=== PATIENT | female | born 1950 | race African-American/Black ===

== ENCOUNTER 2017-06-12 11:58 | Inpatient (IN) ==
[2017-06-12] MEDS ORDERED: FUROSEMIDE 40 MG/4 ML VIAL IV STA (12:53)
[2017-06-12 13:49] LABS: Hematocrit 29.4 VOL% (35.7-47.0); Hemoglobin 9.5 GM/DL (12.0-16.0); Immature Granulocytes % 0.4 %; Immature Granulocytes Absolute 0.03 #; Lymphocytes # 0.9 10*3/uL (1.4-4.0); Mean Corpuscular HGB Conc 32.3 GM/DL (32-36); Mean Corpuscular Hemoglobin 31 PG (27-34); Mean Corpuscular Volume 94.5 FL (87-102); Mean Platelet Volume 9.2 FL (9.6-12.0); Monocytes # 0.4 10*3/uL (0.11-0.8); Monocytes % 6.1 % (1.7-12.7); NRBC # 0.02 10*3/uL; Neutrophils # 5.4 10*3/uL (1.4-7.4); Neutrophils % 80.5 % (38.7-73.9); Platelet Count 324 T/CUMM (130-400); Red Blood Count 3.11 MC/CUMM (3.8-5.5); Red Cell Distribution Width 16.2 % (9.3-17.3); White Blood Count 6.8 T/CUMM (4-12)
[2017-06-12 13:58] LABS: PT Patient Result 10.7 SECS
[2017-06-12] MEDS ORDERED: FUROSEMIDE 40 MG/4 ML VIAL ONE (14:17)
[2017-06-12 14:20] LABS: Apearance,Urine CLEAR (Clear); Bilirubin,Urine Negative (Negative); Blood, Urine Large mg/dL (Negative); Glucose,Urine (UA) Negative (Negative); Hyaline Casts,Urine 6 /LPF (0-3); Ketones,Urine 5 mg/dL (Negative); Mucus,Urine Occasional /LPF (Occasional); Nitrite,Urine Negative (Negative); Protein,Urine 30 MG/DL; RBC,Urine 88 /HPF (0-4); Squamous Epithelial Cell,Urine Occasional /HPF (0-10); Urine Color Yellow (Yellow); Urine Specific Gravity 1.023 (1.001-1.035); Urine Urobilinogen < 2.0 EU/DL (0.2-1.0); WBC,Urine 185 /HPF (0-6)
[2017-06-12 14:26] LABS: Barbiturates Screen,Urine Negative (Negative); Benzodiazepines Screen,Urine Negative (Negative); Cannabinoid Screen,Urine Negative (Negative); Opiate Screen,Urine Negative (Negative); Phencyclidine Screen,Urine Negative (Negative)
[2017-06-12 14:27] LABS: Alanine Aminotransferase 11 U/L (13-56); Albumin 2.3 G/DL (3.4-5.0); Alkaline Phosphatase 68 U/L (45-117); Aspartate Amino Transferase 59 U/L (0-37); Bilirubin,Total < 0.39 MG/DL (0.2-1.0); Blood Urea Nitrogen 13 MG/DL (7-18); Glucose 104 MG/DL (74-106); Osmolality,Calculated 285.8 MOS/KG (273-304); Potassium 3.1 MMOL/L (3.5-5.1); Sodium 144 MMOL/L (136-145); Total Protein 6.8 G/DL (6.4-8.3)
[2017-06-12 14:29] LABS: CKMB % 6.5 %
[2017-06-12 14:32] LABS: Troponin I Only 0.657 NG/ML (0.00-0.045)
[2017-06-12] MEDS ORDERED: LEVOFLOXACIN INJ 750 MG in PREMIX 1 EACH IV STA (15:01)
[2017-06-12] MEDS ORDERED: ERGOCALCIFEROL 50,000 UNIT CAPSULE PO SCH (15:30)
[2017-06-12] MEDS ORDERED: LEVOFLOXACIN INJ 500 MG in PREMIX 1 EACH IV SCH (15:30)
[2017-06-12 16:41] LABS: Hepatitis A Ab IgM Quant 0.11 Index; Hepatitis A Ab IgM Result Negative (Negative); Hepatitis B Core IgM Quant 0.17 Index; Hepatitis B Core IgM Result Negative (Negative); Hepatitis B Surface Ag Quant 0.23 Index; Hepatitis B Surface Ag Result Negative (Negative); Hepatitis C Virus Ab Quant 0.54 Index; Hepatitis C Virus Ab Result Negative (Negative)
[2017-06-12] MEDS ORDERED: INFLUENZA VIRUS VACCINE 0.5 ML SYRINGE IM ONE (17:27)
[2017-06-12] MEDS ORDERED: ESTRADIOL 0.01% VAG CREAM 42.5 GM TUBE VAG SCH (18:00)
[2017-06-12 18:36] LABS: Alcohol Patient Result Negative (Negative)
[2017-06-12 19:08] LABS: Prealbumin 24.9 MG/DL (20-40); Thyroid Stimulating Hormone 3.04 uIU/ml (0.358-3.74)
[2017-06-12 19:11] LABS: Troponin I Only 0.636 NG/ML (0.00-0.045)
[2017-06-12] MEDS: FUROSEMIDE 40 MG/4 ML VIAL IV SCH (19:13)
[2017-06-12] MEDS: predniSONE 5 MG TABLET PO SCH (21:56)
[2017-06-12] MEDS: VANCOMYCIN INJ 1,250 MG in SODIUM CHLORIDE 0.9% 250 ML IV SCH (21:57)
[2017-06-13] MEDS: POTASSIUM CHLORIDE RIDER 10 MEQ in PREMIX 1 EACH IV PRN ×4 (00:10→04:00)
[2017-06-13 01:46] LABS: Eosinophils % 0.6 % (0.00-10.9); Hemoglobin 8.1 GM/DL (12.0-16.0); Immature Granulocytes % 0.6 %; Immature Granulocytes Absolute 0.03 #; Lymphocytes # 1.5 10*3/uL (1.4-4.0); Lymphocytes % 28.2 % (21.3-54.2); Mean Corpuscular HGB Conc 33.8 GM/DL (32-36); Mean Corpuscular Hemoglobin 31 PG (27-34); Mean Corpuscular Volume 92.7 FL (87-102); Mean Platelet Volume 9.3 FL (9.6-12.0); Monocytes # 0.6 10*3/uL (0.11-0.8); Monocytes % 10.3 % (1.7-12.7); NRBC # 0.02 10*3/uL; Neutrophils # 3.3 10*3/uL (1.4-7.4); Neutrophils % 60.3 % (38.7-73.9); Platelet Count 260 T/CUMM (130-400); Red Blood Count 2.59 MC/CUMM (3.8-5.5); White Blood Count 5.4 T/CUMM (4-12)
[2017-06-13 02:13] LABS: Alanine Aminotransferase 9 U/L (13-56); Albumin 1.6 G/DL (3.4-5.0); Alkaline Phosphatase 56 U/L (45-117); Aspartate Amino Transferase 45 U/L (0-37); Bilirubin,Total < 0.39 MG/DL (0.2-1.0); Blood Urea Nitrogen 12 MG/DL (7-18); Glucose 100 MG/DL (74-106); Potassium 3.2 MMOL/L (3.5-5.1); Sodium 143 MMOL/L (136-145); Total Protein 5.2 G/DL (6.4-8.3)
[2017-06-13 02:26] LABS: Free T4 (Free Thyroxine) 0.94 NG/DL (0.76-1.46); Risk Ratio 3.12; VLDL CHOLESTEROL 20.4 MG/DL
[2017-06-13] MEDS: MAGNESIUM OXIDE 400 MG TABLET PO SCH (09:56)
[2017-06-13] MEDS: CLOPIDOGREL 75 MG TABLET PO SCH (09:56)
[2017-06-13] MEDS: CALCIUM (CARBONATE) 600 MG TABLET PO SCH (09:56)
[2017-06-13] MEDS: predniSONE 10 MG TABLET PO SCH (09:57)
[2017-06-13] MEDS: VANCOMYCIN INJ 1,250 MG in SODIUM CHLORIDE 0.9% 250 ML IV SCH ×3 (09:57→21:42)
[2017-06-13] MEDS: SPIRONOLACTONE 50 MG TABLET PO SCH (09:57)
[2017-06-13] MEDS: FUROSEMIDE 40 MG/4 ML VIAL IV SCH ×2 (09:57→16:11)
[2017-06-13] MEDS: ASPIRIN EC 81 MG TABLET PO SCH (09:57)
[2017-06-13] MEDS: LEVOFLOXACIN INJ 750 MG in PREMIX 1 EACH IV SCH (18:53)
[2017-06-13] MEDS: predniSONE 5 MG TABLET PO SCH (21:41)
[2017-06-14 05:47] LABS: Eosinophils # 0.1 10*3/uL (0.0-0.87); Hematocrit 25.3 VOL% (35.7-47.0); Hemoglobin 8.3 GM/DL (12.0-16.0); Immature Granulocytes % 0.7 %; Immature Granulocytes Absolute 0.04 #; Lymphocytes # 1.2 10*3/uL (1.4-4.0); Mean Corpuscular HGB Conc 32.8 GM/DL (32-36); Mean Corpuscular Hemoglobin 31 PG (27-34); Mean Corpuscular Volume 94.8 FL (87-102); Mean Platelet Volume 9.6 FL (9.6-12.0); Monocytes # 0.5 10*3/uL (0.11-0.8); Neutrophils % 68.3 % (38.7-73.9); Platelet Count 254 T/CUMM (130-400); Red Blood Count 2.67 MC/CUMM (3.8-5.5); Red Cell Distribution Width 16.4 % (9.3-17.3); White Blood Count 5.8 T/CUMM (4-12)
[2017-06-14 06:16] LABS: Calcium 6.7 MG/DL (8.5-10.1); Osmolality,Calculated 281.3 MOS/KG (273-304); Potassium 3.3 MMOL/L (3.5-5.1)
[2017-06-14] MEDS ORDERED: MAGNESIUM SULF RIDER 4 GM in PREMIX 1 EACH IV PRN (08:02)
[2017-06-14] MEDS ORDERED: POTASSIUM CHLORIDE 20 MEQ TABLET PO PRN (08:02)
[2017-06-14] MEDS ORDERED: MAGNESIUM SULF RIDER 2 GM in PREMIX 1 EACH IV PRN (08:02)
[2017-06-14 08:36] LABS: CKMB % 5.7 %
[2017-06-14 08:43] LABS: Troponin I Only 0.796 NG/ML (0.00-0.045)
[2017-06-14] MEDS: FUROSEMIDE 40 MG/4 ML VIAL IV SCH ×2 (09:36→16:59)
[2017-06-14] MEDS: POTASSIUM CHLORIDE RIDER 10 MEQ in PREMIX 1 EACH IV PRN ×4 (10:56→18:05)
[2017-06-14 11:04] LABS: Total Protein 5.5 G/DL (6.4-8.3)
[2017-06-14] MEDS: VANCOMYCIN INJ 1,250 MG in SODIUM CHLORIDE 0.9% 250 ML IV SCH ×2 (13:08→15:19)
[2017-06-14] MEDS: CLOPIDOGREL 75 MG TABLET PO SCH (13:10)
[2017-06-14] MEDS: MAGNESIUM OXIDE 400 MG TABLET PO SCH (13:10)
[2017-06-14] MEDS: EMTRICITABINE/TENOFOVIR 200-300 MG TABLET PO SCH (13:10)
[2017-06-14] MEDS: SPIRONOLACTONE 50 MG TABLET PO SCH (13:10)
[2017-06-14] MEDS: predniSONE 10 MG TABLET PO SCH (13:10)
[2017-06-14] MEDS: CALCIUM (CARBONATE) 600 MG TABLET PO SCH (13:10)
[2017-06-14] MEDS: ASPIRIN EC 81 MG TABLET PO SCH (13:11)
[2017-06-14] MEDS ORDERED: SODIUM CHLORIDE 0.9% 250 ML IV ONE (16:40)
[2017-06-14] MEDS: LEVOFLOXACIN INJ 750 MG in PREMIX 1 EACH IV SCH (18:05)
[2017-06-14] MEDS: predniSONE 5 MG TABLET PO SCH (20:55)
[2017-06-15] MEDS: VANCOMYCIN INJ 1,250 MG in SODIUM CHLORIDE 0.9% 250 ML IV SCH (02:41)
[2017-06-15 04:36] LABS: Eosinophils # 0.1 10*3/uL (0.0-0.87); Eosinophils % 1.2 % (0.00-10.9); Hematocrit 25.1 VOL% (35.7-47.0); Hemoglobin 8.1 GM/DL (12.0-16.0); Immature Granulocytes % 0.6 %; Immature Granulocytes Absolute 0.03 #; Lymphocytes # 1.1 10*3/uL (1.4-4.0); Lymphocytes % 20.8 % (21.3-54.2); Mean Corpuscular HGB Conc 32.3 GM/DL (32-36); Mean Corpuscular Hemoglobin 31 PG (27-34); Mean Corpuscular Volume 96.5 FL (87-102); Mean Platelet Volume 9.2 FL (9.6-12.0); Monocytes # 0.4 10*3/uL (0.11-0.8); Monocytes % 6.9 % (1.7-12.7); Neutrophils # 3.6 10*3/uL (1.4-7.4); Neutrophils % 70.5 % (38.7-73.9); Platelet Count 247 T/CUMM (130-400); Red Cell Distribution Width 16.3 % (9.3-17.3); White Blood Count 5.1 T/CUMM (4-12)
[2017-06-15 05:05] LABS: Osmolality,Calculated 282.3 MOS/KG (273-304); Potassium 3.7 MMOL/L (3.5-5.1)
[2017-06-15 05:34] LABS: Alanine Aminotransferase < 9 U/L (13-56); Albumin 1.7 G/DL (3.4-5.0); Alkaline Phosphatase 60 U/L (45-117); Aspartate Amino Transferase 44 U/L (0-37); Bilirubin,Direct < 0.050 MG/DL (0.0-0.20); Bilirubin,Indirect 0.5 MG/DL (0.0-1.0); Total Protein 5.1 G/DL (6.4-8.3)
[2017-06-15] MEDS: CALCIUM (CARBONATE) 600 MG TABLET PO SCH (08:53)
[2017-06-15] MEDS: CLOPIDOGREL 75 MG TABLET PO SCH (08:53)
[2017-06-15] MEDS: ASPIRIN EC 81 MG TABLET PO SCH (08:53)
[2017-06-15] MEDS: MAGNESIUM OXIDE 400 MG TABLET PO SCH (08:53)
[2017-06-15] MEDS: predniSONE 10 MG TABLET PO SCH (08:53)
[2017-06-15] MEDS: SPIRONOLACTONE 50 MG TABLET PO SCH (08:53)
[2017-06-15] MEDS: EMTRICITABINE/TENOFOVIR 200-300 MG TABLET PO SCH (08:55)
[2017-06-15] MEDS: FUROSEMIDE 40 MG/4 ML VIAL IV SCH ×2 (10:06→16:46)
[2017-06-15 11:05] LABS: Immunoglobulin A (Chem) 464 MG/DL (70-400); Immunoglobulin G (Chem) 1430 MG/DL (700-1600); Total Protein (Chem) 5.5 G/DL (6.4-8.3)
[2017-06-15 11:06] LABS: Immunoglobulin M (Chem) 148 MG/DL (40-230)
[2017-06-15 13:39] LABS: Immuno Free Light Chain Lambda 5.21 MG/DL (0.57-2.63); Immuno Free Light Chain Ratio 0.67 MG/DL (0.26-1.65)
[2017-06-15] MEDS: LEVOFLOXACIN INJ 750 MG in PREMIX 1 EACH IV SCH (17:13)
[2017-06-15] MEDS: predniSONE 5 MG TABLET PO SCH (20:56)
[2017-06-16 06:16] LABS: Eosinophils # 0.1 10*3/uL (0.0-0.87); Hematocrit 27.4 VOL% (35.7-47.0); Hemoglobin 8.6 GM/DL (12.0-16.0); Immature Granulocytes % 0.5 %; Immature Granulocytes Absolute 0.03 #; Lymphocytes # 1.2 10*3/uL (1.4-4.0); Lymphocytes % 21.8 % (21.3-54.2); Mean Corpuscular HGB Conc 31.4 GM/DL (32-36); Mean Corpuscular Hemoglobin 31 PG (27-34); Mean Corpuscular Volume 99.6 FL (87-102); Mean Platelet Volume 9.5 FL (9.6-12.0); Monocytes # 0.5 10*3/uL (0.11-0.8); Monocytes % 9.2 % (1.7-12.7); Neutrophils # 3.6 10*3/uL (1.4-7.4); Neutrophils % 66.5 % (38.7-73.9); Platelet Count 267 T/CUMM (130-400); Red Blood Count 2.75 MC/CUMM (3.8-5.5); Red Cell Distribution Width 17.2 % (9.3-17.3); White Blood Count 5.5 T/CUMM (4-12)
[2017-06-16 06:45] LABS: Calcium 7.5 MG/DL (8.5-10.1); Osmolality,Calculated 279.3 MOS/KG (273-304)
[2017-06-16 06:49] LABS: Alanine Aminotransferase < 9 U/L (13-56); Albumin 1.9 G/DL (3.4-5.0); Alkaline Phosphatase 86 U/L (45-117); Aspartate Amino Transferase 40 U/L (0-37); Bilirubin,Direct < 0.100 MG/DL (0.0-0.20); Bilirubin,Indirect 0.6 MG/DL (0.0-1.0); Total Protein 5.2 G/DL (6.4-8.3)
[2017-06-16] MEDS: FUROSEMIDE 40 MG/4 ML VIAL IV SCH ×2 (09:29→18:06)
[2017-06-16] MEDS: EMTRICITABINE/TENOFOVIR 200-300 MG TABLET PO SCH (09:29)
[2017-06-16] MEDS: ASPIRIN EC 81 MG TABLET PO SCH (09:30)
[2017-06-16] MEDS: CLOPIDOGREL 75 MG TABLET PO SCH (09:30)
[2017-06-16] MEDS: predniSONE 10 MG TABLET PO SCH (09:30)
[2017-06-16] MEDS: SPIRONOLACTONE 50 MG TABLET PO SCH (09:30)
[2017-06-16] MEDS: CALCIUM (CARBONATE) 600 MG TABLET PO SCH (09:30)
[2017-06-16] MEDS: MAGNESIUM OXIDE 400 MG TABLET PO SCH (09:30)
[2017-06-16 12:31] LABS: Collection Time,Urine 24 HOURS; Total Protein 24 Hr Ur Result 273 MG/24HR (0-149.1); Total Volume,Urine 1950 ML (400-2000)
[2017-06-16] MEDS: PHENAZOPYRIDINE 95 MG TABLET PO SCH (19:05)
[2017-06-16] MEDS: predniSONE 5 MG TABLET PO SCH (22:00)
[2017-06-17 07:56] VITALS: BP 129/80
[2017-06-17] MEDS: EMTRICITABINE/TENOFOVIR 200-300 MG TABLET PO SCH (09:57)
[2017-06-17] MEDS: CALCIUM (CARBONATE) 600 MG TABLET PO SCH (09:58)
[2017-06-17] MEDS: MAGNESIUM OXIDE 400 MG TABLET PO SCH (09:58)
[2017-06-17] MEDS: SPIRONOLACTONE 50 MG TABLET PO SCH (09:58)
[2017-06-17] MEDS: predniSONE 10 MG TABLET PO SCH (09:58)
[2017-06-17] MEDS: ASPIRIN EC 81 MG TABLET PO SCH (09:58)
[2017-06-17] MEDS: CLOPIDOGREL 75 MG TABLET PO SCH (09:58)
[2017-06-17] MEDS: FUROSEMIDE 40 MG/4 ML VIAL IV SCH (09:58)
[2017-06-17] MEDS: PHENAZOPYRIDINE 95 MG TABLET PO SCH (09:58)
[2017-06-17 10:44] LABS: Albumin (SPE) 2.4 G/DL (3.2-5.3); Alpha 1 (SPE) 0.2 G/DL (0.1-0.4); Alpha 1 (SPE) Rel % 3.5 %; Alpha 2 (SPE) 0.6 G/DL (0.4-1.0); Alpha 2 (SPE) Rel % 11.5 %; Beta (SPE) 0.6 G/DL (0.5-1.1); Beta (SPE) Rel % 11.9 %
[2017-06-17 10:45] LABS: Gamma (SPE) 1.7 G/DL (0.7-1.7); Gamma (SPE) Rel % 30.1 %
[2017-06-17 17:30] LABS: % CD4 (T Cells) 22 % (32-64); % CD8 (T Cells) 64 % (8-40); 4/8 Ratio 0.4 (>=0.9)
[2017-06-21 06:39] LABS: Collection Time,Urine 24 HOURS; Total Volume,Urine 650 ML (400-2000)
[2017-06-21 06:51] LABS: Total Protein 24 Hr Ur Result 143 MG/24HR (0-149.1)
[2017-06-21 11:33] LABS: 24 Hr Protein (Bench) 113 MG/24HR (0-149.1)
[2017-06-22 11:04] LABS: 24 Hr Protein (Bench) 143 MG/24HR (0-149.1)
== END 2017-06-17 11:44 | disposition home or self-care (01) | DRG 292 ==
LOC: N.ED 11:58 → SUATTDRO 15:14 → N.EDINP 15:14 → N.TELEN 17:25
PROVIDERS: ADMIT Internal Medicine; ATTEND Internal Medicine

== ENCOUNTER 2019-03-24 22:43 | Inpatient (IN) ==
[2019-03-24] MEDS ORDERED: ONDANSETRON 4 MG/2 ML VIAL IV STA (23:34)
[2019-03-24] MEDS ORDERED: SODIUM CHLORIDE 0.9% 1,000 ML IV STA (23:34)
[2019-03-24] MEDS ORDERED: SCOPOLAMINE 1.5 MG PATCH TRANSDERM ONE (23:35)
[2019-03-24] MEDS ORDERED: PANTOPRAZOLE 40 MG VIAL IV STA (23:36)
[2019-03-24 23:42] LABS: Basophils # 0.1 10*3/uL (0.0-0.2); Basophils % 0.3 % (0.0-0.8); Hematocrit 31.3 VOL% (35.7-47.0); Hemoglobin 9.3 GM/DL (12.0-16.0); Immature Granulocytes % 0.7 %; Immature Granulocytes Absolute 0.11 #; Lymphocytes # 0.6 10*3/uL (1.4-4.0); Lymphocytes % 3.9 % (21.3-54.2); Mean Corpuscular HGB Conc 29.7 GM/DL (32-36); Mean Corpuscular Volume 93.4 FL (87-102); Mean Platelet Volume 9.5 FL (9.6-12.0); Monocytes % 4.4 % (1.7-12.7); Neutrophils % 90.7 % (38.7-73.9); Platelet Count 333 T/CUMM (130-400); Red Blood Count 3.35 MC/CUMM (3.8-5.5); Red Cell Distribution Width 15.8 % (9.3-17.3); White Blood Count 15.8 T/CUMM (4-12)
[2019-03-24 23:47] LABS: PT Patient Result 11.3 SECS (9.6-12.2)
[2019-03-25 00:01] LABS: Alanine Aminotransferase < 9 U/L (13-56); Albumin 1.7 G/DL (3.4-5.0); Alkaline Phosphatase 79 U/L (45-117); Aspartate Amino Transferase 15 U/L (0-37); Blood Urea Nitrogen 70 MG/DL (7-18); Calcium 8.8 MG/DL (8.5-10.1); Estimated Glom Filtration Rate 11 ML/MIN; Glucose 107 MG/DL (74-106); Osmolality,Calculated 288.2 MOS/KG (273-304); Total Protein 8.7 G/DL (6.4-8.3)
[2019-03-25 00:07] LABS: Band Neutrophils 4 % (0-10); Platelet Estimate Normal; Segmented Neutrophils 95 % (50-85); Total Cells Counted 100
[2019-03-25 00:08] LABS: Target Cells 1+
[2019-03-25] MEDS ORDERED: cefTRIAXone 1,000 MG in SODIUM CHLORIDE 0.9% 100 ML IV STA (00:33)
[2019-03-25 01:33] LABS: Apearance,Urine CLOUDY (Clear); Bacteria,Urine Many /HPF (Few); Bilirubin,Urine Negative (Negative); Blood, Urine Small mg/dL (Negative); Glucose,Urine (UA) Negative (Negative); Ketones,Urine Negative (Negative); Mucus,Urine Occasional /LPF (Occasional); Nitrite,Urine Negative (Negative); Protein,Urine Negative; RBC,Urine 8 /HPF (0-4); Squamous Epithelial Cell,Urine Occasional /HPF (0-10); Urine Color Amber (Yellow); Urine Specific Gravity 1.019 (1.001-1.035); Urine Urobilinogen < 2.0 EU/DL (0.2-1.0); WBC,Urine 43 /HPF (0-6)
[2019-03-25] MEDS ORDERED: ONDANSETRON 4 MG/2 ML VIAL IV PRN (02:54)
[2019-03-25] MEDS ORDERED: SODIUM CHLORIDE 0.9% 1,000 ML IV SCH (03:00)
[2019-03-25] MEDS ORDERED: LEVOFLOXACIN INJ 750 MG in PREMIX 1 EACH IV ONE (03:05)
[2019-03-25] MEDS ORDERED: NOREPINEPHRINE 4 MG/4 ML VIAL IV ONE ×2 (03:49→11:49)
[2019-03-25] MEDS: NOREPINEPHRINE 8 MG in SODIUM CHLORIDE 0.9% 242 ML IV SCH ×4 (06:16→20:36)
[2019-03-25] MEDS ORDERED: AZTREONAM 2,000 MG in SODIUM CHLORIDE 0.9% 100 ML IV ONE (06:30)
[2019-03-25 07:02] LABS: Basophils # 0.1 10*3/uL (0.0-0.2); Basophils % 0.3 % (0.0-0.8); Hematocrit 30.5 VOL% (35.7-47.0); Hemoglobin 9.2 GM/DL (12.0-16.0); Immature Granulocytes % 0.5 %; Immature Granulocytes Absolute 0.09 #; Lymphocytes # 0.7 10*3/uL (1.4-4.0); Lymphocytes % 4.2 % (21.3-54.2); Mean Corpuscular HGB Conc 30.2 GM/DL (32-36); Mean Corpuscular Volume 93.8 FL (87-102); Mean Platelet Volume 9.1 FL (9.6-12.0); Monocytes % 3.7 % (1.7-12.7); Neutrophils % 91.3 % (38.7-73.9); Platelet Count 342 T/CUMM (130-400); Red Blood Count 3.25 MC/CUMM (3.8-5.5); White Blood Count 17.1 T/CUMM (4-12)
[2019-03-25 07:34] LABS: Alanine Aminotransferase < 6 U/L (13-56); Albumin 1.5 G/DL (3.4-5.0); Alkaline Phosphatase 82 U/L (45-117); Aspartate Amino Transferase 12 U/L (0-37); Blood Urea Nitrogen 68 MG/DL (7-18); Calcium 8.4 MG/DL (8.5-10.1); Estimated Glom Filtration Rate 13 ML/MIN; Glucose 118 MG/DL (74-106); Osmolality,Calculated 288.2 MOS/KG (273-304); Total Protein 8.3 G/DL (6.4-8.3)
[2019-03-25] MEDS: ALBUTEROL/IPRATROPIUM 3 ML NEB RESP TX SCH ×3 (07:46→20:28)
[2019-03-25] MEDS: PANTOPRAZOLE 40 MG VIAL IV SCH (09:07)
[2019-03-25] MEDS: ENOXAPARIN 30 MG/0.3 ML SYRINGE SUBCUT SCH (09:08)
[2019-03-25 11:29] LABS: Apearance,Urine CLOUDY (Clear); Bacteria,Urine Many /HPF (Few); Bilirubin,Urine Negative (Negative); Blood, Urine Moderate mg/dL (Negative); Glucose,Urine (UA) Negative (Negative); Hyaline Casts,Urine 145 /LPF (0-3); Ketones,Urine Negative (Negative); Mucus,Urine Occasional /LPF (Occasional); Nitrite,Urine Negative (Negative); Protein,Urine 30 MG/DL; RBC,Urine 13 /HPF (0-4); Squamous Epithelial Cell,Urine Many /HPF (0-10); Urine Color Amber (Yellow); Urine Specific Gravity 1.031 (1.001-1.035); Urine Urobilinogen < 2.0 EU/DL (0.2-1.0); WBC,Urine 63 /HPF (0-6)
[2019-03-25 11:56] LABS: Band Neutrophils 15 % (0-10); Lymphocytes 8 % (20-55); Segmented Neutrophils 75 % (50-85); Total Cells Counted 100
[2019-03-25] MEDS ORDERED: AZTREONAM 1,000 MG in SODIUM CHLORIDE 0.9% 100 ML IV SCH (12:00)
[2019-03-25 12:03] LABS: Hypochromasia 1+; Microcytosis 1+
[2019-03-25 12:04] LABS: Polychromasia Slight
[2019-03-25 12:07] LABS: Platelet Estimate Normal
[2019-03-25 12:08] LABS: Ovalocytes Few
[2019-03-25] MEDS ORDERED: SODIUM CHLORIDE 0.9% 0 ML IV ONE (12:49)
[2019-03-25] MEDS ORDERED: AZTREONAM 1,000 MG VIAL ONE (12:49)
[2019-03-25] MEDS ORDERED: SODIUM CHLORIDE 0.9% 125 ML IV ONE (13:18)
[2019-03-25] MEDS: SODIUM CHLORIDE 0.9% 1,000 ML IV SCH (13:30)
[2019-03-25] MEDS: AZTREONAM 1,000 MG in SYRINGE 1 EACH IV SCH ×2 (13:55→18:30)
[2019-03-25] MEDS: ALBUTEROL 2.5 MG/3 ML NEB RESP TX PRN (14:26)
[2019-03-25] MEDS: DEXTROSE 10% 250 ML IV PRN ×3 (17:59→23:55)
[2019-03-26] MEDS: ALBUTEROL/IPRATROPIUM 3 ML NEB RESP TX SCH ×4 (00:16→20:42)
[2019-03-26] MEDS: NOREPINEPHRINE 8 MG in SODIUM CHLORIDE 0.9% 242 ML IV SCH ×4 (00:56→15:56)
[2019-03-26] MEDS: SODIUM CHLORIDE 0.9% 1,000 ML IV SCH ×3 (01:08→08:50)
[2019-03-26] MEDS: AZTREONAM 1,000 MG in SYRINGE 1 EACH IV SCH ×4 (01:14→20:30)
[2019-03-26] MEDS: DEXTROSE 10% 250 ML IV PRN ×2 (01:29→12:16)
[2019-03-26 05:15] LABS: Basophils % 0.2 % (0.0-0.8); Eosinophils % 0.1 % (0.00-10.9); Hematocrit 29.5 VOL% (35.7-47.0); Hemoglobin 8.6 GM/DL (12.0-16.0); Immature Granulocytes % 0.6 %; Lymphocytes # 0.8 10*3/uL (1.4-4.0); Lymphocytes % 4.8 % (21.3-54.2); Mean Corpuscular HGB Conc 29.2 GM/DL (32-36); Mean Corpuscular Volume 96.4 FL (87-102); Mean Platelet Volume 9.1 FL (9.6-12.0); Monocytes % 4.7 % (1.7-12.7); Neutrophils % 89.6 % (38.7-73.9); Platelet Count 314 T/CUMM (130-400); Red Blood Count 3.06 MC/CUMM (3.8-5.5); Red Cell Distribution Width 16.3 % (9.3-17.3); White Blood Count 17.6 T/CUMM (4-12)
[2019-03-26 05:39] LABS: Calcium 7.9 MG/DL (8.5-10.1); Osmolality,Calculated 291.5 MOS/KG (273-304)
[2019-03-26 06:08] LABS: Band Neutrophils 6 % (0-10); Lymphocytes 3 % (20-55); Segmented Neutrophils 87 % (50-85); Total Cells Counted 100
[2019-03-26 06:09] LABS: Anisocytosis 1+; Hypochromasia 1+; Platelet Estimate Normal; Target Cells 1+
[2019-03-26] MEDS ORDERED: MAGNESIUM SULF RIDER 2 GM in PREMIX 1 EACH IV PRN (07:31)
[2019-03-26] MEDS ORDERED: MAGNESIUM SULF RIDER 4 GM in PREMIX 1 EACH IV PRN (07:31)
[2019-03-26] MEDS: ENOXAPARIN 30 MG/0.3 ML SYRINGE SUBCUT SCH (08:56)
[2019-03-26] MEDS: PANTOPRAZOLE 40 MG VIAL IV SCH (08:56)
[2019-03-26] MEDS: NICOTINE 7 MG/24 HR PATCH TRANSDERM SCH (08:57)
[2019-03-26] MEDS ORDERED: COCAINE SUBSTITUTE 30 ML BOTTLE TOP ONE (09:33)
[2019-03-26] MEDS: ACETAMINOPHEN 325 MG/10.15 ML UDCUP PO PRN ×2 (10:45→16:20)
[2019-03-26] MEDS: POLYETHYLENE GLYCOL POWDER 17 GM PACK PO SCH (10:46)
[2019-03-26] MEDS: DOCUSATE SODIUM 100 MG/10 ML UDCUP PO SCH ×2 (11:06→20:30)
[2019-03-26 12:32] LABS: ABG Base Excess -6.3 MMOL/L (-2.5-2.5); ABG HCO3 19.1 MMOL/L (20-26); ABG Oxygen Saturation 92.4 % (95-100); ABG PCO2 57.3 MM HG (35-48); ABG PO2 67.3 MM HG (80-95); ABG TCO2 21.3 MMOL/L (23-27); Allen Test Positive
[2019-03-26] MEDS: SODIUM BICARB INJ 150 MEQ in DEXTROSE 5% 850 ML IV SCH ×2 (14:20→23:31)
[2019-03-26] MEDS ORDERED: NOREPINEPHRINE 4 MG/4 ML VIAL IV ONE (15:35)
[2019-03-26] MEDS: INSULIN REGULAR 100 UNIT/ML SUBCUT SCH (18:23)
[2019-03-26] MEDS ORDERED: EMTRICITABINE/TENOFOVIR 200-300 MG TABLET PO SCH (21:00)
[2019-03-27] MEDS: INSULIN REGULAR 100 UNIT/ML SUBCUT SCH ×4 (00:19→18:12)
[2019-03-27] MEDS: ALBUTEROL/IPRATROPIUM 3 ML NEB RESP TX SCH ×4 (01:48→20:35)
[2019-03-27] MEDS: AZTREONAM 1,000 MG in SYRINGE 1 EACH IV SCH ×4 (01:53→18:15)
[2019-03-27] MEDS ORDERED: LEVOFLOXACIN INJ 500 MG in PREMIX 1 EACH IV SCH (03:30)
[2019-03-27] MEDS: NOREPINEPHRINE 8 MG in SODIUM CHLORIDE 0.9% 242 ML IV SCH (05:24)
[2019-03-27] MEDS: ALBUTEROL 2.5 MG/3 ML NEB RESP TX PRN ×2 (06:20→22:20)
[2019-03-27] MEDS: SODIUM BICARB INJ 150 MEQ in DEXTROSE 5% 850 ML IV SCH ×3 (07:16→21:58)
[2019-03-27] MEDS: MORPHINE 4 MG/1 ML VIAL IV PRN ×8 (07:45→21:58)
[2019-03-27] MEDS: NICOTINE 7 MG/24 HR PATCH TRANSDERM SCH (08:53)
[2019-03-27] MEDS: POLYETHYLENE GLYCOL POWDER 17 GM PACK PO SCH (08:53)
[2019-03-27] MEDS: ENOXAPARIN 30 MG/0.3 ML SYRINGE SUBCUT SCH (08:53)
[2019-03-27] MEDS: PANTOPRAZOLE 40 MG VIAL IV SCH (08:54)
[2019-03-27] MEDS: CLOPIDOGREL 75 MG TABLET PO SCH (08:54)
[2019-03-27] MEDS: DOCUSATE SODIUM 100 MG/10 ML UDCUP PO SCH ×2 (08:54→21:58)
[2019-03-27] MEDS: MAGNESIUM OXIDE 400 MG TABLET PO SCH (08:54)
[2019-03-27] MEDS: ATORVASTATIN 80 MG TABLET PO SCH (08:54)
[2019-03-27] MEDS: ASPIRIN CHEW 81 MG TABLET PO SCH (08:54)
[2019-03-27] MEDS ORDERED: TIVICAY 50MG PO SCH (09:00)
[2019-03-27] MEDS ORDERED: DEXTROSE 50% 25 GM/50 ML VIAL IV PRN (09:57)
[2019-03-27] MEDS ORDERED: GLUCAGON 1 MG VIAL IM PRN (09:57)
[2019-03-27] MEDS ORDERED: LORazepam 2 MG/1 ML VIAL ONE (23:24)
[2019-03-27] MEDS: LORazepam 2 MG/1 ML VIAL IV PRN (23:35)
[2019-03-28] MEDS: INSULIN REGULAR 100 UNIT/ML SUBCUT SCH ×4 (00:17→17:31)
[2019-03-28] MEDS: AZTREONAM 1,000 MG in SYRINGE 1 EACH IV SCH ×4 (01:16→18:23)
[2019-03-28] MEDS: ALBUTEROL/IPRATROPIUM 3 ML NEB RESP TX SCH ×4 (01:55→20:02)
[2019-03-28 05:19] LABS: Basophils % 0.2 % (0.0-0.8); Hematocrit 25.6 VOL% (35.7-47.0); Hemoglobin 7.6 GM/DL (12.0-16.0); Immature Granulocytes % 1.4 %; Immature Granulocytes Absolute 0.19 #; Lymphocytes # 0.5 10*3/uL (1.4-4.0); Mean Corpuscular HGB Conc 29.7 GM/DL (32-36); Mean Corpuscular Volume 95.9 FL (87-102); Mean Platelet Volume 9.4 FL (9.6-12.0); Monocytes % 5.8 % (1.7-12.7); Neutrophils % 88.6 % (38.7-73.9); Platelet Count 225 T/CUMM (130-400); Red Blood Count 2.67 MC/CUMM (3.8-5.5); Red Cell Distribution Width 16.7 % (9.3-17.3); White Blood Count 13.2 T/CUMM (4-12)
[2019-03-28] MEDS ORDERED: NOREPINEPHRINE 4 MG/4 ML VIAL IV ONE (05:38)
[2019-03-28 05:42] LABS: Band Neutrophils 1 % (0-10); Hypochromasia 2+; Lymphocytes 5 % (20-55); Platelet Estimate Adequate; Segmented Neutrophils 88 % (50-85); Total Cells Counted 100
[2019-03-28 05:55] LABS: Prealbumin 4.2 MG/DL (20-40)
[2019-03-28] MEDS: SODIUM BICARB INJ 150 MEQ in DEXTROSE 5% 850 ML IV SCH (06:00)
[2019-03-28] MEDS: NOREPINEPHRINE 8 MG in SODIUM CHLORIDE 0.9% 242 ML IV SCH (06:01)
[2019-03-28 06:05] LABS: Calcium 7.7 MG/DL (8.5-10.1); Osmolality,Calculated 288.4 MOS/KG (273-304)
[2019-03-28] MEDS: MORPHINE 4 MG/1 ML VIAL IV PRN ×8 (07:26→18:47)
[2019-03-28] MEDS ORDERED: LORazepam 2 MG/1 ML VIAL ONE ×2 (08:26→16:30)
[2019-03-28] MEDS: LORazepam 2 MG/1 ML VIAL IV PRN ×2 (08:29→16:34)
[2019-03-28] MEDS: NICOTINE 7 MG/24 HR PATCH TRANSDERM SCH (08:31)
[2019-03-28] MEDS: ENOXAPARIN 30 MG/0.3 ML SYRINGE SUBCUT SCH (08:32)
[2019-03-28] MEDS: ATORVASTATIN 80 MG TABLET PO SCH (08:32)
[2019-03-28] MEDS: DOCUSATE SODIUM 100 MG/10 ML UDCUP PO SCH (08:32)
[2019-03-28] MEDS: MAGNESIUM OXIDE 400 MG TABLET PO SCH (08:32)
[2019-03-28] MEDS: ASPIRIN CHEW 81 MG TABLET PO SCH (08:32)
[2019-03-28] MEDS: CLOPIDOGREL 75 MG TABLET PO SCH (08:32)
[2019-03-28] MEDS: PANTOPRAZOLE 40 MG VIAL IV SCH (08:32)
[2019-03-28] MEDS: POLYETHYLENE GLYCOL POWDER 17 GM PACK PO SCH (08:32)
[2019-03-28] MEDS ORDERED: MAGNESIUM SULF RIDER 2 GM in PREMIX 1 EACH IV ONE (08:36)
[2019-03-28] MEDS: POTASSIUM CHLORIDE 20 MEQ TABLET PO SCH ×3 (08:49→16:04)
[2019-03-28] MEDS: LACTATED RINGERS 1,000 ML IV SCH ×2 (09:02→19:52)
[2019-03-28] MEDS ORDERED: VANCOMYCIN INJ 500 MG in SODIUM CHLORIDE 0.9% 100 ML IV SCH (14:30)
[2019-03-28 21:38] VITALS: BP 75/20
== END 2019-03-28 21:46 | disposition expired | DRG 871 ==
LOC: EDBD → EDUNIT# → N.ED 22:43 → SUATTDRO 03-25 02:54 → N.EDINP 03-25 02:54 → N.ICU 03-25 06:02
PROVIDERS: ADMIT Family Medicine; ATTEND Internal Medicine